=== PATIENT | female | born 1965 ===

== ENCOUNTER 2017-06-11 08:01 | Day surgery (SDC) | payer BC ==
[2017-06-11 08:22] VITALS: BMI 26.0
[2017-06-11 08:45] VITALS: O2SAT 100
[2017-06-11] MEDS ORDERED: Propofol 10 mg/ml Inj (20 ML) ONE (11:02)
[2017-06-11] MEDS ORDERED: Midazolam 2 MG/2 ML VIAL ONE (11:02)
[2017-06-11] MEDS ORDERED: Lactated Ringer's 1,000 ML IV ONE (11:03)
[2017-06-11] MEDS ORDERED: Lactated Ringer's 500 ML IV SCH (11:15)
[2017-06-11 12:58] VITALS: BP 132/69; PULSE 63; RESP 14; TEMP 97.2
== END 2017-06-11 12:45 | disposition home or self-care (01) ==
LOC: C.ENDO 08:01
PROVIDERS: ATTEND Internal Medicine Gastroenterology
DX: Z12.11 Encounter for screening for malignant neoplasm of colon (principal); D12.4 Benign neoplasm of descending colon; K62.1 Rectal polyp; Z80.0 Family history of malignant neoplasm of digestive organs; K64.1 Second degree hemorrhoids; K21.0 Gastro-esophageal reflux disease with esophagitis; R12 Heartburn; Z98.84 Bariatric surgery status